=== PATIENT | male | born 1965 | race Caucasian/White ===

== ENCOUNTER 2018-06-18 19:07 | Emergency (ER) | payer BC ==
[2018-06-18] MEDS ORDERED: Phenergan 25 MG INJ IM ONE (19:35)
[2018-06-18] MEDS ORDERED: Hydromorphone 1 mg/ml Ampule IM ONE (19:35)
[2018-06-18] MEDS ORDERED: Phenergan 25 MG INJ ONE (19:40)
[2018-06-18] MEDS ORDERED: Hydromorphone 1 mg/ml Ampule ONE (19:41)
--- NOTE | 2018-06-18 19:58 | ERPHSYRPT ---
- History of Present Illness Time Seen by Provider: 06/18/18 19:23 Source: patient Exam Limitations: clinical condition Patient Subjective Stated Complaint: pt reports history of blood clots. reports for several weeks he has intermittent pain and swelling to his left lower extremity. reports sever sharp constant pain today. concerened for another blood clot. Triage Nursing Assessment: pt is aox3, pupils perrl, afebrile, radial pulses strong and regular, resps easy and non labored, skin is pink warm dry. no swelling or redness noted to the lower extremities, skin is intact, pedal pulses are strong and regular, cap refill <3 seconds, pt ROM is normal and sensation is intact. Physician History: PATIENT WITH A HISTORY OF DVT OF LEFT LOWER EXTREMITY, PRESENTLY ON ANTICOAGULANTS XARELTO, COMPLAINS OF PAIN IN HIS LEFT THIGH AND HIP X 2 WEEK. DENIES LEG, CHAN OR CALF SWELLING. ADMITS TO PAIN UPON WEIGHT BEARING. DENIES TRAUMA, INJURY, DYSPNEA OR CHEST PAIN. Method of Injury: unknown Occurred: other (2 WEEKS AGO) Quality: constant Severity of Pain-Max: moderate Severity of Pain-Current: moderate Lower Extremities Pain: hip: left, leg: left Modifying Factors: Improves With: movement Associated Symptoms: unable to bear weight Allergies/Adverse Reactions: No Known Drug Allergies Allergy (Unverified 06/18/18 19:20) Home Medications: Rivaroxaban [Xarelto] 20 mg PO DAILY 06/18/18 [History] Hx Tetanus, Diphtheria Vaccination/Date Given: No Hx Influenza Vaccination/Date Given: No Hx Pneumococcal Vaccination/Date Given: No Immunizations Up to Date: Yes - Review of Systems Constitutional: No Fever, No Chills Eyes: No Symptoms Ears, Nose, & Throat: No Symptoms Respiratory: No Cough, No Dyspnea Cardiac: No Chest Pain, No Edema, No Syncope Abdominal/Gastrointestinal: No Abdominal Pain, No Nausea, No Vomiting, No Diarrhea Genitourinary Symptoms: No Dysuria Musculoskeletal: Joint Pain, Other (THIGH PAIN), No Back Pain, No Neck Pain Skin: No Rash Neurological: No Dizziness, No Focal Weakness, No Sensory Changes Psychological: No Symptoms Endocrine: No Symptoms All Other Systems: Reviewed and Negative - Past Medical History Pertinent Past Medical History: Yes Cardiac History: Deep Vein Thrombosis Respiratory History: Pulmonary Embolism - Past Surgical History Past Surgical History: Yes - Social History Smoking Status: Never smoker Drug Use: none Patient Lives Alone: No - Nursing Vital Signs Nursing Vital Signs: Initial Vital Signs Temperature 98.6 F 06/18/18 19:11 Pulse Rate 60 06/18/18 19:11 Respiratory Rate 18 06/18/18 19:11 Blood Pressure 125/86 06/18/18 19:11 O2 Sat by Pulse Oximetry 96 06/18/18 19:11 Pain Scale Pain Intensity 8 - Physical Exam General Appearance: mild distress Eyes, Ears, Nose, Throat Exam: moist mucous membranes Neck Exam: non-tender, supple Cardiovascular/Respiratory Exam: chest non-tender Gastrointestinal/Abdominal Exam: non-tender, guarding Hips Exam: left: normal inspection, limited range of motion, pain (MARKED PAIN UPON MINIMAL RANGE OF MOTION OF LEFT HIP, TENDERNESS OVER LEFT GRATER ), soft tissue tenderness Legs Exam: bilateral leg: non-tender, other (THERE IS NO CALF TENDERNESS OR SWELLING) Ankle Exam: bilateral ankle: non-tender, normal inspection, normal range of motion Foot Exam: bilateral foot: non-tender, normal inspection, other (BILATERAL PEDIS PULSE 2+) DTR - Lower Extremities Exam: knee (R): 2+, knee (L): 2+, ankle (R): 2+, ankle ( L): 2+ Neuro/Tendon Exam: normal sensation, normal motor functions Mental Status Exam: alert, oriented x 3, cooperative Skin Exam: normal color, warm, dry SpO2 Interpretation: normal SpO2: 96 Oxygen Delivery: Room Air - Radiology Exams Left Hip X-ray Interpretation: Interpreted by me, Negative, No Fracture (NO DISLOCATION) - Radiology Ultrasound Exam Venous Lower Extremity Ultrasound: discussed w/radiologist (VENOUS DOPPLER NEG FOR DVT OF LEFT LOWER EXTREMITY) Ordered Tests: Active Orders 24 hr Category Date Time Status HIP UNI (2V) INCL PEL IF DONE Stat Exams 06/18/18 19:37 Ordered VENOUS UNILAT/LIMITED EXTREMIT [US] Stat Exams 06/18/18 Ordered Medication Summary Discontinued Medications Generic Name Dose Route Start Last Admin Trade Name Freq PRN Reason Stop Dose Admin Hydromorphone HCl 1 mg 06/18/18 19:35 06/18/18 19:45 Hydromorphone 1 Mg/Ml Ampule IM 06/18/18 19:36 1 mg STAT ONE Administration Hydromorphone HCl Confirm 06/18/18 19:41 Hydromorphone 1 Mg/Ml Ampule Administered 06/18/18 19:42 Dose 1 mg .ROUTE .STK-MED ONE Promethazine HCl 25 mg 06/18/18 19:35 06/18/18 19:46 Phenergan 25 Mg Inj IM 06/18/18 19:36 25 mg STAT ONE Administration Promethazine HCl Confirm 06/18/18 19:40 Phenergan 25 Mg Inj Administered 06/18/18 19:41 Dose 25 mg .ROUTE .STK-MED ONE - Progress Progress: improved, pain not gone completely Progress Note: 06/18/18 21:02 ADMINISTERED DILAUDID 1MG/PHENERGAN 25MG IM Counseled pt/family regarding: diagnosis, need for follow-up, rad results - Departure Time of Disposition: 21:06 Departure Disposition: Home Clinical Impression: LEFT HIP PAIN Condition: Stable Critical Care Time: No Referrals: KAILA MCKINNEY [Primary Care Provider] - Additional Instructions: FOLLOWUP WITH YOUR PRIMARY CARE PROVIDER FOR EVALUATION, TREATMENT AND REFERRAL TO ORTHOPEDIC SURGEON. CONTINUE ALL CURRENT MEDICATIONS. NORCO 5/325 EVERY 6 HOURS FOR PAIN. AMBULATE USING WALKER ASSISTANCE NONWEIGHT BEARING LEFT LOWER EXTREMITY FOR 1 WEEK. Prescriptions: Hydrocodone/Acetaminophen [[place] 5-325 Tablet] 1 each PO Q6HPRN PRN #8 tablet MDD 4 PRN Reason: Pain
[2018-06-18 21:19] VITALS: BP 133/85; PULSE 78; O2SAT 97
[2018-06-18] MEDS ORDERED: KEFLEX 500 MG PO ONE (21:46)
--- NOTE | 2018-06-19 08:35 | XRAY ---
Indication: Left leg pain 3-4 weeks. Two-dimensional sonogram and color Doppler imaging of the major venous vessels of the left leg was performed. Comparison: None No thrombus seen in the examined deep venous vessels of the left leg including greater saphenous vein. Veins demonstrate normal compressibility. Venous waveforms are normal with and without augmentation. Impression: Left leg negative for DVT. Comment: Preliminary report was given.
--- NOTE | 2018-06-19 08:44 | XRAY ---
Indication: Left hip pain 2 weeks. Comparison: None AP pelvis and 2 views of the left hip demonstrates small well-circumscribed ossification adjacent to the right superior acetabulum either degenerative versus old injury. Minimal lower lumbar degenerative endplate spurring. No other bony, articular, or soft tissue abnormalities.
== END 2018-06-18 21:18 | disposition home or self-care (01) ==
LOC: ED 19:07
DX: M25.552 Pain in left hip (principal); R60.0 Localized edema; Z86.718 Personal history of other venous thrombosis and embolism; Z79.01 Long term (current) use of anticoagulants
CPT/HCPCS: 73502; 93971; 96372; 99284; J1170; J2550

== ENCOUNTER 2019-10-19 15:47 | Emergency (ER) | payer BC ==
--- NOTE | 2019-10-19 16:02 | ERPHSYRPT ---
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 He is on Xarelto. The patient fell at work injuring his left hip the pain was shooting down his left buttock and leg. Patient was convinced that he had a recurrent blood clot. He has had recurrent left hip pain in the past but typically it only last a day or 2 at the most. Today is day 3 after his hip injury and the pain is worse today than the other 2 days. Patient is taking his medication as prescribed. Patient denies shortness of breath. Patient has no chest pain. Patient was told not to take any ibuprofen medication. Patient has not taken any pain medicine to help his pain Timing/Duration: day(s) Occured at: work Context: fall Quality: sharpness, throbbing Hip Pain Location: hip (L) Severity of Pain-Max: moderate Severity of Pain-Current: moderate Modifying Factors: Improves With: movement Symptoms prior to fall: none Associated Symptoms: denies symptoms Allergies/Adverse Reactions: No Known Drug Allergies Allergy (Verified 10/19/19 16:07) Home Medications: Rivaroxaban [Xarelto] 20 mg PO DAILY 06/18/18 [History] Hx Tetanus, Diphtheria Vaccination/Date Given: No Hx Influenza Vaccination/Date Given: No Hx Pneumococcal Vaccination/Date Given: No - Review of Systems Constitutional: No Symptoms Eyes: No Symptoms Ears, Nose, & Throat: No Symptoms Respiratory: No Symptoms Cardiac: No Symptoms Abdominal/Gastrointestinal: No Symptoms Genitourinary Symptoms: No Symptoms Musculoskeletal: Fall, Injury (Left hip) Skin: No Symptoms Neurological: No Symptoms Psychological: No Symptoms Endocrine: No Symptoms Hematologic/Lymphatic: No Symptoms Immunological/Allergic: No Symptoms All Other Systems: Reviewed and Negative - Past Medical History Pertinent Past Medical History: Yes Neurological History: No Pertinent History Cardiac History: No Pertinent History, Deep Vein Thrombosis Respiratory History: No Pertinent History Endocrine Medical History: No Pertinent History Musculoskeletal History: Degenerative Disk Disease, Osteoarthritis Other Medical History: XRAY in ER last month showed ossification right superior acetabulum and lower lumbar degenerative spurring. MRI 06/23 showed L4- 5 posterior central annular tear with mild disc bulge - no herniation and L3-5 DDD - Past Surgical History Past Surgical History: Yes - Social History Smoking Status: Never smoker Drug Use: none Patient Lives Alone: No - Nursing Vital Signs Nursing Vital Signs: Initial Vital Signs Temperature 98.3 F 10/19/19 15:58 Pulse Rate 87 10/19/19 15:58 Blood Pressure 120/85 10/19/19 15:58 O2 Sat by Pulse Oximetry 95 10/19/19 15:58 Pain Scale Pain Intensity 9 - Physical Exam General Appearance: mild distress, alert, anxiety Eye Exam: PERRL/EOMI, eyes nml inspection Ears, Nose, Throat Exam: normal ENT inspection, moist mucous membranes Neck Exam: normal inspection, non-tender, supple, full range of motion Respiratory Exam: No chest tenderness Gastrointestinal Exam: No tenderness Rectal Exam: not done Back Exam: normal inspection, normal range of motion, CVA tenderness Extremity Exam: normal inspection, normal range of motion, pelvis stable, tenderness (Left hip) Neurologic Exam: alert, oriented x 3, cooperative, k [employer] II-XII nml as tested Skin Exam: normal color, warm, dry Lymphatic Exam: No adenopathy SpO2 Interpretation: normal O2 Delivery: Room Air - Course Nursing assessment & vital signs reviewed: Yes Ordered Tests: Active Orders 24 hr Category Date Time Status HIP UNI (2V) INCL PEL IF DONE Stat Exams 10/19/19 16:15 Completed VENOUS UNILAT/LIMITED EXTREMIT [US] Stat Exams 10/19/19 16:14 Completed Medication Summary Generic Name Dose Route Start Last Admin Trade Name Freq PRN Reason Stop Dose Admin Hydromorphone HCl 1 mg 10/19/19 17:29 Hydromorphone 1 Mg/Ml Ampule IM 10/19/19 17:30 STAT ONE Methylprednisolone Sodium Succinate 125 mg 10/19/19 17:30 Solu-Medrol 125 Mg IM 10/19/19 17:31 STAT ONE Ondansetron HCl 4 mg 10/19/19 17:30 Zofran Odt 4 Mg PO 10/19/19 17:31 STAT ONE - Progress Progress: unchanged Progress Note: 10/19/19 17:43 Patient underwent a venous Doppler of his entire left lower extremity. There is no evidence of deep venous thrombosis present within the left lower extremity. The patient also underwent an x-ray of his left hip and pelvis. There is no acute fracture dislocation of the left hip seen. There is some degenerative changes with significantly more degenerative changes in the left L5 transverse process and upper portion of the sacrum on the left side. Counseled pt/family regarding: diagnosis, need for follow-up, rad results - Departure Departure Disposition: Home Clinical Impression: Left hip pain, Degenerative arthritis of lumbar spine Condition: Stable Critical Care Time: No Referrals: ALVIN ROBLES [Primary Care Provider] - Additional Instructions: Follow-up with your primary care physician for further management of this pain. Prescriptions: Oxycodone HCl/Acetaminophen [Percocet 5-325 mg Tablet] 1 each PO Q8H PRN PRN # 12 tablet MDD 3 PRN Reason: Pain Prednisone 10 mg [Deltasone 10 mg] 10 mg PO TID #12 tablet
[2019-10-19 16:07] VITALS: PULSE 87; O2SAT 95
--- NOTE | 2019-10-19 16:48 | XRAY ---
Exam: Limited duplex Doppler venous ultrasound examination of the left lower extremity from 10/19/2019. Comparison: Left lower extremity duplex Doppler venous ultrasound exam from 06/18/2018. Indication: Left hip pain. Findings: Chappell scale images, color flow images, and Doppler tracings were obtained of the deep veins of the left lower extremity in the usual manner. Normal transducer compression, Doppler signal augmentation, and color flow is seen within passenger representative segments of the deep veins of the left lower extremity. Normal compression of the greater saphenous vein is seen. Impression: 1. No evidence of deep venous thrombosis is seen within the left lower extremity. This is unchanged from 06/18/2018.
[2019-10-19 16:50] VITALS: BP 124/81
--- NOTE | 2019-10-19 17:18 | XRAY ---
Exam: Left hip films including AP film of the pelvis from 10/19/2019. Comparison: Left hip films from 06/18/2018. Indication: Trauma left hip, pelvis and left hip pain for years. Findings: 2 AP films of the pelvis and coned-down AP and frog-leg lateral views of the left hip were obtained. There is mild asymmetric enlargement of the left L5 transverse process with respect to the right L5 transverse process. In retrospect, this is unchanged. Mild degenerative change is seen between the enlarged left L5 transverse process and the upper aspect of the lateral portion of the sacrum on the left. This is unchanged as well. The patient is slightly rotated on the pelvis radiographs toward the left. I again see an oval-shaped soft tissue calcification adjacent to the superior lateral margin of the right hip joint space representing no change. Hypertrophic spurring at the superior lateral edge of the left acetabulum is again seen. The joint spaces appear adequately preserved. No fracture or dislocation of the left hip is seen. The left pubic ring appears intact. Impression: 1. There is some prominent spurring at the superior lateral margin of the left acetabulum representing no change from 06/18/2018. Otherwise, the left hip joint space appears well maintained. 2. No acute fracture or dislocation of the left hip is seen. 3. There is some focal degenerative change between an asymmetrically enlarged left L5 transverse process and the upper portion of the sacrum on this side. This is unchanged in retrospect. 4. No acute fracture of the pelvis is seen.
[2019-10-19] MEDS ORDERED: Hydromorphone 1 mg/ml Ampule IM ONE (17:29)
[2019-10-19] MEDS ORDERED: solu-MEDROL 125 MG IM ONE (17:30)
[2019-10-19] MEDS ORDERED: ZOFRAN ODT 4 MG PO ONE (17:30)
[2019-10-19] MEDS ORDERED: ZOFRAN ODT 4 MG ONE (17:36)
[2019-10-19] MEDS ORDERED: solu-MEDROL 125 MG ONE (17:37)
[2019-10-19] MEDS ORDERED: Hydromorphone 1 mg/ml Ampule ONE (17:37)
== END 2019-10-19 18:08 | disposition home or self-care (01) ==
LOC: ED 15:47
DX: M25.552 Pain in left hip (principal); M47.896 Other spondylosis, lumbar region; Z86.718 Personal history of other venous thrombosis and embolism; Z79.01 Long term (current) use of anticoagulants
CPT/HCPCS: 73502; 93971; 96372; 99284; J1170; J2930; Q0162